=== PATIENT | male | born 1970 | race Caucasian/White ===

== ENCOUNTER 2025-02-14 09:14 | Inpatient (IN) | payer MEDICAID ==
[~2025-02-14] VITALS: Ht 172.7 cm; Wt 68.0 kg
[2025-02-14 09:46] LABS: PLATELET COUNT (AUTO) 221 K/uL (152-348); RED BLOOD CELL COUNT(AUTO) 4.82 MIL/uL (4.06-5.63); RED CELL DISTRIBUTION WIDTH 13.6 % (12.1-16.2); WHITE BLOOD COUNT (AUTO) 15.0 K/uL (3.6-10.2)
[2025-02-14 09:54] LABS: CREATININE 1.5 mg/dL (0.6-1.3); SODIUM SERUM 143 mmol/L (136-145); UREA NITROGEN, BLOOD 29 mg/dL (7-18)
[2025-02-14 10:00] LABS: ASPARTATE AMINOTRANSFERASE 95 U/L (15-37); TOTAL PROTEIN, SERUM 7.8 g/dL (6.4-8.2)
[2025-02-14 10:03] LABS: LACTIC ACID 4.5 mmol/L (0.4-2.0)
[2025-02-14 10:08] LABS: ETHANOL < 3 MG/DL (0-10)
[2025-02-14] MEDS: IV NORMAL SALINE 1000 ML BAG IV ONE (10:15)
[2025-02-14] MEDS: PROCHLORPERAZINE EDISYLATE 10 MG/2 ML VIAL IV ONE (11:10)
[2025-02-14] MEDS ORDERED: PROCHLORPERAZINE EDISYLATE 10 MG/2 ML VIAL ONE (11:10)
[2025-02-14 13:43] VITALS: BP 111/81
[2025-02-14 15:35] LABS: *BILIRUBIN,URIN NEGATIVE (NEGATIVE); *CLARITY,URINE CLEAR (CLEAR); *COLOR,URINE YELLOW (YELLOW); *KETONES,URINE NEGATIVE (NEGATIVE); *PROTEIN,URINE NEGATIVE (NEGATIVE); *UROBILINOGEN,URINE 0.2 E.U./dl (NORMAL); LEUKOCYTE ESTERASE ,URINE NEGATIVE (NEGATIVE); NITRITE, URINE NEGATIVE (NEGATIVE); UGLUCOSE NEGATIVE (NEGATIVE)
[2025-02-14 15:38] LABS: *BLOOD, URINE TRACE (NEGATIVE)
[2025-02-14] MEDS ORDERED: ASPIRIN 81 MG TAB.CHEW ONE (15:42)
[2025-02-14 15:46] LABS: *AMPHETAMINE, URINE POSITIVE (NEGATIVE); *BARBITURATE, URINE NEGATIVE (NEGATIVE); *BENZODIAZEPINE, URINE NEGATIVE (NEGATIVE); *CANNABINOID, URINE POSITIVE (NEGATIVE); *COCCAINE, URINE NEGATIVE (NEGATIVE); *OPIATE, URINE NEGATIVE (NEGATIVE); *PHENCYCLIDINE SCREEN,URINE NEGATIVE (NEGATIVE); FENTANYL, URINE POSITIVE (NEGATIVE)
[2025-02-14] MEDS: ASPIRIN 81 MG TAB.CHEW PO ONE (15:46)
[2025-02-14 16:02] LABS: SQUAMOUS EPITHELIAL CELL,UR FEW /HPF (NONE SEEN)
[2025-02-14] MEDS ORDERED: MAGNESIUM HYDROXIDE 30 ML LIQUID UDC PO PRN (16:45)
[2025-02-14] MEDS ORDERED: DOSING BY PHARMACY-MD TO SPECIFY MED/ROUTE XX PRN (16:45)
[2025-02-14] MEDS ORDERED: ACETAMINOPHEN 325 MG TABLET PO PRN (16:45)
[2025-02-14] MEDS ORDERED: ONDANSETRON 4 MG/2 ML VIAL IV PRN (16:45)
[2025-02-14] MEDS ORDERED: LACTULOSE 20 G/30 ML LIQUID UDC PO PRN (17:00)
[2025-02-14] MEDS ORDERED: NALOXONE HCL 0.4 MG/ML AMPUL IV PRN (17:00)
[2025-02-14] MEDS: MIRALAX 17 GM POWD.PACK PO SCH (17:52)
[2025-02-14 17:53] LABS: CREATINE KINASE, TOTAL 546 U/L (39-308)
[2025-02-14] MEDS: PIPERACILLIN SODIUM/TAZOBACTAM 3.375 G in IV DEXTROSE 5% 100 ML IV SCH (18:08)
[2025-02-14 19:45] VITALS: BP 110/80; TEMP 98.4; O2SAT 94
[2025-02-14] MEDS: IV LACTATED RINGERS SOLUTION 1,000 ML IV PRN (20:31)
[2025-02-14] MEDS: SENNOSIDES 1 TABLET PO SCH (23:01)
[2025-02-15 00:42] VITALS: BP 100/59; TEMP 98; O2SAT 94
[2025-02-15] MEDS: PANTOPRAZOLE SODIUM 40 MG TABLET.DR PO SCH (06:36)
[2025-02-15 06:56] VITALS: BP 107/59; TEMP 98.1; O2SAT 95
[2025-02-15 06:58] LABS: PLATELET COUNT (AUTO) 202 K/uL (152-348); RED BLOOD CELL COUNT(AUTO) 4.29 MIL/uL (4.06-5.63); RED CELL DISTRIBUTION WIDTH 13.6 % (12.1-16.2); WHITE BLOOD COUNT (AUTO) 7.9 K/uL (3.6-10.2)
[2025-02-15 07:13] LABS: CREATININE 0.7 mg/dL (0.6-1.3); SODIUM SERUM 138 mmol/L (136-145); UREA NITROGEN, BLOOD 22 mg/dL (7-18)
[2025-02-15 07:45] VITALS: BP 95/60; TEMP 98.1; O2SAT 98
[2025-02-15] MEDS: ASPIRIN EC 81 MG TABLET.DR PO SCH (09:10)
[2025-02-15 11:35] VITALS: BP 112/63; TEMP 98; O2SAT 98
[2025-02-15 15:18] VITALS: BP 114/70; TEMP 98; O2SAT 100
[2025-02-15 19:00] VITALS: BP 114/74; TEMP 98.5; O2SAT 96
[2025-02-16 04:00] VITALS: BP 107/79; TEMP 98.3; O2SAT 96
[2025-02-16 06:59] LABS: PLATELET COUNT (AUTO) 201 K/uL (152-348); RED BLOOD CELL COUNT(AUTO) 4.29 MIL/uL (4.06-5.63); RED CELL DISTRIBUTION WIDTH 13.2 % (12.1-16.2); WHITE BLOOD COUNT (AUTO) 5.6 K/uL (3.6-10.2)
[2025-02-16 07:05] LABS: CREATININE 0.7 mg/dL (0.6-1.3); SODIUM SERUM 141.0 mmol/L (136-145); UREA NITROGEN, BLOOD 16.0 mg/dL (7-18)
[2025-02-16 11:19] VITALS: BP 135/84; TEMP 98.9; O2SAT 98
[2025-02-16 14:42] VITALS: BP 128/75; TEMP 98.8; O2SAT 99
== END 2025-02-16 15:30 | disposition home or self-care (01) | DRG 812 ==
LOC: ER 09:14 → EDBD 09:14 → TELE3 16:34 → MEDSURG3 02-15 11:22
PROVIDERS: ADMIT Nurse Practitioner Family; ATTEND Nurse Practitioner Family
DX: T40.411A Poisoning by fentanyl or fentanyl analogs, accidental (unintentional), initial encounter (principal); G92.8 Other toxic encephalopathy; E87.20 Acidosis, unspecified; I21.A1 Myocardial infarction type 2; R65.11 Systemic inflammatory response syndrome (SIRS) of non-infectious origin with acute organ dysfunction; Z59.02 Unsheltered homelessness; T43.651A Poisoning by methamphetamines accidental (unintentional), initial encounter; F15.10 Other stimulant abuse, uncomplicated; Y92.410 Unspecified street and highway as the place of occurrence of the external cause; N17.9 Acute kidney failure, unspecified; K59.00 Constipation, unspecified; F19.10 Other psychoactive substance abuse, uncomplicated; R74.01 Elevation of levels of liver transaminase levels
CPT/HCPCS: 36415; 70450; 71045; 83605; 83735; 84100; 84443; 84484; 85025; 85730; 87040; 87086; 93307; A4606; A4663; G0378; G0480; J0780; J2543; J7040